=== PATIENT | male | born 1975 | race Caucasian/White ===

== ENCOUNTER 2017-06-16 07:32 | Emergency (ER) | payer BC ==
[2017-06-16 07:45] VITALS: BP 146/92
--- NOTE | 2017-06-16 08:24 | UC ---
Lower Extremity/Ankle HPI - HPI Summary HPI Summary: ONSET OF BILATERAL 4TH TOE PAIN, REDNESS AND SWELLING YESTERDAY, LEFT WORSE THAN RIGHT. DENIES ANY TRAUMA. HAS CHRONIC ONYCHOMYCOSIS. IS ATHLETIC - [employer] AND ALSO RUNS. HAS SOME MILD PAIN AT THE TIPS OF HIS OTHER TOES WELL BUT SYMPTOMS ARE MAINLY IN 4TH TOES. NO FEVER. - History of Current Complaint Chief Complaint: UCLowerExtremity Stated Complaint: PAINFUL TOES Time Seen by Provider: 06/16/17 07:49 Hx Obtained From: Patient Onset/Duration: Sudden Onset, Lasting Days - 1 DAY, Still Present Severity Initially: Moderate Severity Currently: Moderate Pain Intensity: 6 Pain Scale Used: 0-10 Numeric Aggravating Factor(s): Standing, Ambulation, Other - TIGHT SHOES/SOCKS Alleviating Factor(s): Rest Able to Bear Weight: Yes - Allergies/Home Medications Allergies/Adverse Reactions: Allergies Allergy/AdvReac Type Severity Reaction Status Date / Time No Known Allergies Allergy Verified 06/16/17 07:45 Home Medications: Home Medications Bupropion XL* [Wellbutrin XL *] 150 mg PO DAILY 06/16/17 [History Confirmed ] Cholecalciferol TAB* [Vitamin D TAB*] 1 tab PO DAILY 06/16/17 [History Confirmed 06/16/17] Methylphenidate ER TAB* [Concerta ER TAB*] 36 mg PO DAILY 06/16/17 [History Confirmed 06/16/17] Vitamin B Complex CAP* [B Complex CAP*] 1 cap PO DAILY 06/16/17 [History Confirmed 06/16/17] Zinc 1 tab PO DAILY 06/16/17 [History Confirmed 06/16/17] PMH/Surg Hx/FS Hx/Imm Hx - Additional Past Medical History Additional PMH: ADHD Cardiovascular History: Hypertension - Surgical History Surgical History: Yes Surgery Procedure, Year, and Place: polyps sinusses - Family History Known Family History: Negative: Hypertension - Social History Alcohol Use: Rare Substance Use Type: None Smoking Status (MU): Never Smoked Tobacco Review of Systems Constitutional: Negative Skin: Other - ERYTHEMA 4TH TOES Respiratory: Negative Cardiovascular: Negative Gastrointestinal: Negative Musculoskeletal: Arthralgia, Edema All Other Systems Reviewed And Are Negative: Yes Physical Exam Triage Information Reviewed: Yes Appearance: Well-Appearing, No Pain Distress, Well-Nourished Vital Signs: Initial Vital Signs Temp 96.0 F 06/16/17 07:38 Pulse 58 06/16/17 07:38 Resp 16 06/16/17 07:38 BP 146/92 06/16/17 07:38 Pulse Ox 100 06/16/17 07:38 Vital Signs Reviewed: Yes Eyes: Positive: Conjunctiva Clear ENT: Positive: Hearing grossly normal Neck: Positive: Supple Respiratory: Positive: No respiratory distress, No accessory muscle use Cardiovascular: Positive: Pulses Normal Abdomen Description: Positive: Soft Musculoskeletal: Positive: Edema @ - BILATERAL 4TH TOES, Other: - TTP BILATERAL 4TH TOES DISTALLY. NOT TENDER INTERDIGITAL SPACES. NO MASSES OR NODULES. Neurological: Positive: Alert Psychological: Positive: Age Appropriate Behavior Skin: Positive: Other - BILATERAL 4TH TOE ERYTHEMA AND EDEMA, LEFT>RIGHT. NO WARMTH. ONYCHOMYCOSIS ALL TOENAILS Diagnostics - Radiology LEFT FOOT XRAY Xray Interpretation: No Acute Changes Radiology Interpretation Completed By: Radiologist Lower Extremity Course/Dx - Differential Dx/Diagnosis Provider Diagnoses: BILATERAL 4TH TOE PAIN, NOS Discharge - Sign-Out/Discharge Documenting (check all that apply): Discharge - Discharge Plan Condition: Stable Disposition: HOME Patient Education Materials: Arthralgia (ED) Referrals: Temo Reed MD [Medical Doctor] - If Needed Julienne Frederick MD [Primary Care Provider] - If Needed Additional Instructions: Unclear cause of your toe pain today. Diagnoses we discussed include skin infection, gout, sprain/fracture, Kramer's neuroma, circulatory issue, peripheral neuropathy, Raynaud's phenomenon. It would be unusual but not impossible to see certain of these conditions manifest simultaneously and symmetrically in both your fourth toes. X-ray today was unremarkable. You had some improvement of your symptoms after soaking in warm water. Recommend keeping your foot warm and dry and wear loose fitting shoes so your toes have room to move. If your symptoms persist follow-up with podiatry or orthopedics. There is no skin breakdown indicative of athlete's foot. Your chronic toenail fungus could certainly provide an entry for bacteria to cause infection. PODIATRY IN [facility] Dr. Samy Fisher [address] [facility] Dr[address] Fran Zayas. Please call his office at [phone] to make an appointment to be seen Dr. Ajay Hernandez. Please call his office at [phone] to make an appointment to be seen - Billing Disposition and Condition Condition: STABLE Disposition: HOME
--- NOTE | 2017-06-16 08:41 | RAD ---
Indication: Fourth toe pain. 3 views of the left fourth digit demonstrates no fracture. No other bone or joint abnormality is noted. IMPRESSION: No fracture of the left foot is noted.
== END 2017-06-16 09:20 | disposition home or self-care (01) ==
LOC: UCEAST 07:32
DX: M79.675 Pain in left toe(s) (principal); M79.674 Pain in right toe(s)
CPT/HCPCS: 99211; G0463

== ENCOUNTER 2017-08-04 20:35 | Emergency (ER) | payer BC ==
[2017-08-04 20:52] VITALS: BP 149/91
--- NOTE | 2017-08-04 21:45 | UC ---
Complaint Male HPI - HPI Summary HPI Summary: 41 y/o male presents to the urgent care c/o left flank pain since this morning at 0530. Pt reports pain is 5/10, intermittent and sharp at times radiating to the LUQ. Pt took ibuprofen 400mg PO to alleviate symptoms this morning. He though it was muscular, but is not triggered by movement. He was mowing his lawn this afternoon and pain was not exacerbated by that. He has decrease appetite. but he ate lunch w/o any problem. Pt denies fever, abdominal pain, SOB , chest pain, N/V/D. Pt also denies Hx of kidney stones or any urinary symptoms. Pt states he had a normal BM this morning. However he fell he has gas at times. - History of Current Complaint Chief Complaint: UCBackPain Stated Complaint: BACK PAIN Time Seen by Provider: 08/04/17 21:21 Hx Obtained From: Patient Onset/Duration: Sudden Onset, Lasting Hours - 12 hrs, Still Present Timing: Intermittent, Lasting Seconds Severity Initially: Mild Severity Currently: Moderate Pain Intensity: 5 Pain Scale Used: 0-10 Numeric Location: Flank - left Character: Sharp Aggravating Factor(s): Nothing Alleviating Factor(s): Nothing Associated Signs And Symptoms: Positive: Nausea. Negative: Fever, Hematuria, Constipation, Blood in Stool - Risk Factors Testicular Torsion: Negative - Allergies/Home Medications Allergies/Adverse Reactions: Allergies Allergy/AdvReac Type Severity Reaction Status Date / Time No Known Allergies Allergy Verified 08/04/17 20:52 PMH/Surg Hx/FS Hx/Imm Hx Previously Healthy: Yes Cardiovascular History: Hypertension - diet controlled Psychological History: Depression, Bipolar Disorder Other Psychological History: ADHD - Surgical History Surgical History: Yes Surgery Procedure, Year, and Place: polyps sinusses - Family History Known Family History: Positive: Cardiac Disease, Hypertension - Social History Occupation: Employed Full-time Lives: With Family Alcohol Use: None Substance Use Type: None Smoking Status (MU): Never Smoked Tobacco Review of Systems Constitutional: Negative Skin: Negative Eyes: Negative ENT: Negative Respiratory: Negative Cardiovascular: Negative Gastrointestinal: Other - left flnak pain Genitourinary: Negative Motor: Negative Neurovascular: Negative Musculoskeletal: Negative Neurological: Negative Psychological: Negative Is Patient Immunocompromised?: No All Other Systems Reviewed And Are Negative: Yes Physical Exam - Summary Physical Exam Summary: Vital Signs Reviewed: Yes General:Patient is a well developed and nourished male who is sitting comfortable in the examining table. Patient is not in any acute respiratory distress. Eyes: Positive: Conjunctiva Clear - PERRLA, EOMI, fundi grossly normal ENT: Positive: Normal ENT inspection, Hearing grossly normal, Pharynx normal, TMs normal Neck: Positive: Supple, Nontender, No Lymphadenopathy Respiratory: Positive: Chest non-tender, Lungs clear, Normal breath sounds, No respiratory distress Cardiovascular: Positive: RRR,S1 and S2 present, No Murmur, Pulses Normal, Brisk Capillary Refill Abdomen Description: Positive: Nontender, Abd: Flat with no distention. No surface trauma, scars, incisions. hyperactive bowel sounds present in all four quadrants. No tenderness, guarding, rigidity to palpation. No masses palpated, no pulsation in epigastric area. No organomegaly. Negative Lyons signs. No periumbilical tenderness. No rebound in the lower quadrants. NT over McBurneys point. . Good femoral pulses bilaterally. No hernia noted. Positive left CVA tenderness. Negative Rt CVA tenderness Musculoskeletal: Positive: Strength Intact, ROM Intact, No Edema,FROM in all major joints, no edema, no cyanosis or clubbing. Neuro: Alert and oriented x 3. No acute neurological deficits. Speech is normal. Psychological: WNL Skin: Dry and warm Triage Information Reviewed: Yes Vital Signs: Initial Vital Signs Temp 98.0 F 08/04/17 20:45 Pulse 54 08/04/17 20:45 Resp 16 08/04/17 20:45 BP 149/91 08/04/17 20:45 Pulse Ox 99 08/04/17 20:45 Complaint Male Course/Dx - Course Course Of Treatment: 41 y/o male presents to the urgent care c/o left flank pain since this morning at 0530. Pt reports pain is 5/10, intermittent and sharp at times radiating to the LUQ. Pt took ibuprofen 400mg PO to alleviate symptoms this morning. He though it was muscular, but is not triggered by movement. He was mowing his lawn this afternoon and pain was not exacerbated by that. He has decrease appetite now. but he ate lunch w/o any problem. Pt denies fever, abdominal pain, SOB, chest pain, N/V/D. Pt also denies Hx of kidney stones or any urinary symptoms. Pt states he had a normal BM this morning. However he fell he has gas at times.Hx obtained. Pt w/ Positive left CVA tenderness on examination, UA ordered:negative. Pt's symptosm discussed w/ DR Hutchinson and she recommended an abdominal CTw/ contrast. CT ordered to r/o kidney stones or other abnormality, Impression:Compatible w/ mesentaric adenitis. CT results discussed w/ Pt, Pt Rx Narpoxen PO and Miralax to alleviate symptoms and strongly advised if flank pain worsens despite taking medication to go immediately to the ER for further treatment.Pt's BP is elevated today advised to decrease salt in diet, monitor BP and f/u with PCP for further management. Pt understood and agreed w/ plan of care and left the clinic ambulating, Hemodynamically stable, A&OX3 - Differential Dx/Diagnosis Differential Diagnosis/HQI/PQRI: Ureteral Calculi, Urinary Tract Infection, Other - constipation Provider Diagnoses: 1- Acute left flank pain. 2-Mesenteric adenitis. 3- Uncontrolled HTN Discharge - Sign-Out/Discharge Documenting (check all that apply): Discharge/Admit/Transfer - D/C home - Discharge Plan Condition: Stable Disposition: HOME Prescriptions: Naproxen TAB* [Naprosyn 250 mg TAB*] 250 mg PO Q8H PRN #30 tab PRN Reason: Pain Polyethylene Glycol 3350* [Miralax*] 17 gm PO DAILY #1 bottle Patient Education Materials: Low-Sodium Diet (ED), Flank Pain (ED), Mesenteric Adenitis (ED) Referrals: Julienne Frederick MD [Primary Care Provider] - 2 Days Additional Instructions: 1- Please take medications as directed to alleviate symptoms. Take Naproxen PO after meals. Increase fluid intake. 2- Take Miralax to soften your bowel movements and alleviate symptoms. Eat soft meals. 3 - If symptoms do not improve or worsen and you develop severe flank pain please go immediately to the ER or your PCP for further evaluation and treatment. 4-Your BP is elevated today. please decrease salt in your diet, monitor BP and if it continues to be elevated please f/u with your PCP for further management - Billing Disposition and Condition Condition: STABLE Disposition: HOME
--- NOTE | 2017-08-04 22:06 | RAD ---
CLINICAL HISTORY: Acute onset left flank pain x2 days COMPARISON: None TECHNIQUE: Noncontrast CT examination of the abdomen and pelvis from the lung bases through the initial tuberosities. FINDINGS: VISUALIZED LUNG BASES: The visualized lung bases are grossly clear. There is no pleural effusion. ABDOMEN AND PELVIS: Evaluation of the solid organs and vasculature is limited without intravenous contrast. The liver, spleen, pancreas and adrenal glands are grossly normal in appearance. The gallbladder is normal. The kidneys are normal in appearance without focal mass, calcification or signs of hydronephrosis. Evaluation of the gastrointestinal tract is limited in the absence of oral contrast. The small and large bowel are not distended.The patient's normal appendix is identified in the right lower quadrant measuring 5 mm in diameter (image [id number]). There are diffuse top normal and mildly enlarged mesenteric lymph nodes measuring up to 9 mm in short axis diameter (for example image 54 on the coronal images). There is no gross retroperitoneal lymphadenopathy. The pelvic viscera is normal in appearance. Surgical clips are noted the bilateral inguinal canals consistent with vasectomy clips. The abdominal aorta and iliac arteries are normal in course and diameter. There are no sinister bone lesions. IMPRESSION: CT findings could be compatible with mesenteric adenitis.
== END 2017-08-04 22:40 | disposition home or self-care (01) ==
LOC: UCEAST 20:35
DX: R10.9 Unspecified abdominal pain (principal); I10 Essential (primary) hypertension
CPT/HCPCS: 74176; 81003; 99211; G0463